=== PATIENT | female | born 1995 | race Caucasian/White ===

== ENCOUNTER → 2018-04-03 19:58 | Outpatient (CLI) | payer OTHER, SELFPAY | PROVIDERS: PCP Internal Medicine; Visit Provider Physician Assistant | DX: J02.9 Acute pharyngitis, unspecified (principal) | CPT/HCPCS: 87070; 87147 ==

== ENCOUNTER → 2018-10-06 17:12 | Outpatient (CLI) | payer BC, SELFPAY ==
[2018-10-06 17:58] LABS: Alanine Aminotransferase 15 IU/L (9-52); Albumin 4.5 g/dL (3.5-5.0); Albumin Globulin Ratio 1.4 (1.0-2.8); Alkaline Phosphatase 54 U/L (38-126); Aspartate Aminotransferase 20 IU/L (14-36); Bilirubin Total 0.6 mg/dL (0.2-1.3); Bilirubin Unconjugated 0.4 mg/dL (0.0-1.1); Cholesterol 210 mg/dL (140-199); Globulin 3.3 g/dL (1.7-4.1); HDL Cholesterol 64 mg/dL (40-60); HEMOLYSIS < 15 (0-50); LDL Cholesterol Calculated 119 mg/dL (<100); Total Protein 7.8 g/dL (6.3-8.2); Triglycerides 133 mg/dL (35-150)
[2018-10-06 18:15] LABS: HCG Quantitative /Beta subunit < 2.39 mIU/mL
== END ==
PROVIDERS: PCP Nurse Practitioner Family; Visit Provider Physician Assistant
DX: L70.0 Acne vulgaris (principal); Z51.81 Encounter for therapeutic drug level monitoring
CPT/HCPCS: 36415; 80061; 80076; 84702

== ENCOUNTER → 2018-11-08 14:28 | Outpatient (CLI) | payer BC, SELFPAY ==
[2018-11-08 15:45] LABS: Alanine Aminotransferase 15 IU/L (9-52); Albumin 4.4 g/dL (3.5-5.0); Albumin Globulin Ratio 1.6 (1.0-2.8); Alkaline Phosphatase 44 U/L (38-126); Aspartate Aminotransferase 19 IU/L (14-36); Bilirubin Total 0.5 mg/dL (0.2-1.3); Bilirubin Unconjugated 0.3 mg/dL (0.0-1.1); Cholesterol 192 mg/dL (140-199); Globulin 2.8 g/dL (1.7-4.1); HDL Cholesterol 51 mg/dL (40-60); HEMOLYSIS < 15 (0-50); LDL Cholesterol Calculated 131 mg/dL (<100); Total Protein 7.2 g/dL (6.3-8.2); Triglycerides 52 mg/dL (35-150)
[2018-11-08 16:00] LABS: HCG Quantitative /Beta subunit < 2.39 mIU/mL
== END ==
PROVIDERS: PCP Nurse Practitioner Family; Visit Provider Physician Assistant
DX: Z51.89 Encounter for other specified aftercare (principal)
CPT/HCPCS: 36415; 80061; 80076; 84702

== ENCOUNTER → 2018-12-08 12:28 | Outpatient (CLI) | payer BC, SELFPAY ==
[2018-12-08 13:19] LABS: Alanine Aminotransferase 10 IU/L (9-52); Albumin 4.2 g/dL (3.5-5.0); Albumin Globulin Ratio 1.5 (1.0-2.8); Alkaline Phosphatase 41 U/L (38-126); Aspartate Aminotransferase 19 IU/L (14-36); Bilirubin Total 0.4 mg/dL (0.2-1.3); Bilirubin Unconjugated 0.2 mg/dL (0.0-1.1); Cholesterol 170 mg/dL (140-199); Globulin 2.8 g/dL (1.7-4.1); HDL Cholesterol 45 mg/dL (40-60); HEMOLYSIS < 15 (0-50); LDL Cholesterol Calculated 107 mg/dL (<100); Triglycerides 88 mg/dL (35-150)
[2018-12-08 13:36] LABS: HCG Quantitative /Beta subunit < 2.39 mIU/mL
== END ==
PROVIDERS: PCP Nurse Practitioner Family; Visit Provider Physician Assistant
DX: L70.0 Acne vulgaris (principal)
CPT/HCPCS: 36415; 80061; 80076; 84702

== ENCOUNTER → 2019-01-07 13:30 | Outpatient (CLI) | payer BC, SELFPAY ==
[2019-01-07 14:39] LABS: Alanine Aminotransferase 13 IU/L (9-52); Albumin 4.6 g/dL (3.5-5.0); Albumin Globulin Ratio 1.4 (1.0-2.8); Alkaline Phosphatase 47 U/L (38-126); Aspartate Aminotransferase 22 IU/L (14-36); Bilirubin Total 0.5 mg/dL (0.2-1.3); Bilirubin Unconjugated 0.1 mg/dL (0.0-1.1); Cholesterol 199 mg/dL (140-199); Globulin 3.3 g/dL (1.7-4.1); HDL Cholesterol 51 mg/dL (40-60); HEMOLYSIS < 15 (0-50); LDL Cholesterol Calculated 131 mg/dL (<100); Total Protein 7.9 g/dL (6.3-8.2); Triglycerides 84 mg/dL (35-150)
[2019-01-07 14:58] LABS: HCG Quantitative /Beta subunit < 2.39 mIU/mL
== END ==
PROVIDERS: PCP Nurse Practitioner Family; Visit Provider Physician Assistant
DX: L70.0 Acne vulgaris (principal)
CPT/HCPCS: 36415; 80061; 80076; 84702

== ENCOUNTER → 2019-02-07 12:01 | Outpatient (CLI) | payer BC, SELFPAY ==
[2019-02-07 12:48] LABS: Alanine Aminotransferase 18 IU/L (9-52); Albumin 4.2 g/dL (3.5-5.0); Albumin Globulin Ratio 1.4 (1.0-2.8); Alkaline Phosphatase 47 U/L (38-126); Aspartate Aminotransferase 23 IU/L (14-36); Bilirubin Total 0.5 mg/dL (0.2-1.3); Bilirubin Unconjugated 0.2 mg/dL (0.0-1.1); Cholesterol 197 mg/dL (140-199); Globulin 2.9 g/dL (1.7-4.1); HDL Cholesterol 47 mg/dL (40-60); HEMOLYSIS < 15 (0-50); LDL Cholesterol Calculated 128 mg/dL (<100); Total Protein 7.1 g/dL (6.3-8.2); Triglycerides 111 mg/dL (35-150)
[2019-02-07 13:01] LABS: HCG Quantitative /Beta subunit < 2.39 mIU/mL
== END ==
PROVIDERS: PCP Nurse Practitioner Family; Visit Provider Physician Assistant
DX: L70.0 Acne vulgaris (principal)
CPT/HCPCS: 36415; 80061; 80076; 84702

== ENCOUNTER → 2019-03-17 15:19 | Outpatient (CLI) | payer BC, SELFPAY ==
[2019-03-17 16:29] LABS: Pregnancy Test Serum,Qual Negative (Negative)
[2019-03-17 16:50] LABS: Alanine Aminotransferase 12 IU/L (9-52); Albumin 4.7 g/dL (3.5-5.0); Albumin Globulin Ratio 1.4 (1.0-2.8); Alkaline Phosphatase 51 U/L (38-126); Aspartate Aminotransferase 24 IU/L (15-46); Bilirubin Total 0.5 mg/dL (0.2-1.3); Bilirubin Unconjugated 0.3 mg/dL (0.0-1.1); Cholesterol 245 mg/dL (140-199); Globulin 3.3 g/dL (1.7-4.1); HDL Cholesterol 50 mg/dL (40-60); HEMOLYSIS < 15 (0-50); LDL Cholesterol Calculated 170 mg/dL (<100); Triglycerides 123 mg/dL (35-150)
== END ==
PROVIDERS: PCP Nurse Practitioner Family; Visit Provider Physician Assistant
DX: L70.0 Acne vulgaris (principal)
CPT/HCPCS: 36415; 80061; 80076; 84703